=== PATIENT | male | born 1985 | race American Indian/Alaskan Native ===

== ENCOUNTER 2017-05-21 12:18 | Emergency (ER) | payer SELFPAY ==
[2017-05-21 14:43] VITALS: BP 154/92
[2017-05-21 15:27] LABS: Hematocrit 48.6 % (35.5-45.6); Mean Corpuscular HGB Conc 33 % (32-34); Mean Corpuscular Hemoglobin 29 pg (28-32); Mean Corpuscular Volume 87 fl (84-94); Platelet Count 203 K/mm3 (140-440); Red Blood Count 5.57 M/mm3 (3.65-5.03)
[2017-05-21 15:38] LABS: INR 1.68 (0.87-1.13)
[2017-05-21 15:39] LABS: Partial Thromboplastin Time 37.7 Sec. (24.2-36.6)
[2017-05-21 15:48] LABS: Anion Gap 17 mmol/L; BUN/Creatinine Ratio 18.75; Blood Urea Nitrogen 15 mg/dL (9-20); Calcium 9.4 mg/dL (8.4-10.2); Carbon Dioxide 27 mmol/L (22-30); Chloride 99.2 mmol/L (98-107); Glucose 82 mg/dL (75-100); Potassium 4.1 mmol/L (3.6-5.0); Sodium 139 mmol/L (137-145)
[2017-05-21 17:51] LABS: Bacteria,Urine 1+ /HPF (Negative); Bilirubin,Urine NEG (Negative); Blood,Urine NEG (Negative); Ketones,Urine NEG (Negative); Leukocyte Esterase,Urine SM (Negative); Mucus,Urine FEW /HPF; Nitrite,Urine NEG (Negative); Protein,Urine <15 mg/dL mg/dL (Negative); Urobilinogen,Urine < 2.0 mg/dL (<2.0)
[2017-05-21 17:57] LABS: Bilirubin,Urine TNR (Negative); Blood,Urine TNR (Negative); Ketones,Urine TNR mg/dL (Negative); PH,Urine TNR (5.0-7.0); Protein,Urine TNR mg/dL (Negative); Urobilinogen,Urine TNR mg/dL (<2.0)
[2017-05-21 17:58] LABS: Bacteria,Urine TNR /HPF (Negative); Leukocyte Esterase,Urine TNR (Negative); Nitrite,Urine TNR (Negative); RBC,Urine TNR /HPF (0.0-6.0); Renal Epithelial Cells,Urine TNR /LPF; Uric Acid Crystals,Urine TNR; WBC,Urine TNR /HPF (0.0-6.0)
[2017-05-21 17:59] LABS: Fatty Casts,Urine TNR /LPF; Granular Casts,Urine TNR /LPF; Mucus,Urine TNR /HPF; Red Blood Cell Casts,Urine TNR /LPF; Sperm,Urine TNR /HPF (NP); Trichomonas,Urine TNR /HPF; Waxy Casts,Urine TNR /LPF
[2017-05-21] MEDS ORDERED: ZITHROMAX PO ONE (18:03)
[2017-05-21] MEDS ORDERED: ROCEPHIN IM ONE (18:03)
[2017-05-21] MEDS ORDERED: XYLOCAINE 1% MPF 5 mL INFILTRATI ONE (18:03)
--- NOTE | 2017-05-21 19:32 | Emergency Department Report ---
Entered by NURIA LOVELACE, acting as scribe for NATHAN ROY NP. ED Male HPI - General Chief complaint: Urogenital-Male Stated complaint: PAIN BELOW STOMACH Time Seen by Provider: 05/21/17 17:19 Source: patient Mode of arrival: Ambulatory Limitations: No Limitations - History of Present Illness Initial comments: 32 y/o male presents to the ED c/o small swollen node to left inguinal region x 2 days. Associated symptoms include dysuria and nausea but denies vomiting, discharge, back pain, fever and chills. Patient is sexually active with no protection. No alleviating or aggravating factors. NKDA. STARK Complaint: other (small swollen node ) Onset/Timin -: days(s) Location: left inguinal region Radiation: none Severity: mild Quality: other (only hurts if touched ) Consistency: constant, intermittent Improves with: none Worsens with: none swelling, dysuria, other (nausea, denies: fever, chills, back pain, vomiting). denies: discharge - Related Data Sexually active: Yes Previous Rx's Medication Instructions Recorded Last Taken Type NIFEdipine XL [Procardia Xl] 60 mg PO QDAY #30 tablet 12/15/16 Unknown Rx Warfarin [Coumadin] 5 mg PO QDAY #30 tablet 12/15/16 Unknown Rx Allergies Allergy/AdvReac Type Severity Reaction Status Date / Time No Known Allergies Allergy Verified 12/14/16 02:22 ED Review of Systems Comment: All other systems reviewed and negative Constitutional: denies: chills, fever Gastrointestinal: nausea. denies: vomiting Genitourinary: dysuria, other (small swollen node) Musculoskeletal: denies: back pain ED Past Medical Hx - Past Medical History Hx Hypertension: Yes Hx Congestive Heart Failure: No Hx Diabetes: No Hx Asthma: Yes Hx COPD: No Additional medical history: Afib - Surgical History Additional Surgical History: tonsilectomy, lipoma removal - Social History Smoking Status: Never Smoker Substance Use Type: None - Medications Home Medications: Home Medications Medication Instructions Recorded Confirmed Last Taken Type NIFEdipine XL [Procardia Xl] 60 mg PO QDAY #30 tablet 12/15/16 05/21/17 Unknown Rx Warfarin [Coumadin] 5 mg PO QDAY #30 tablet 12/15/16 05/21/17 Unknown Rx ED Physical Exam - General Limitations: No Limitations General appearance: alert, in no apparent distress - Head Head exam: Present: atraumatic, normocephalic, normal inspection - Eye Eye exam: Present: normal appearance, PERRL, EOMI. Absent: scleral icterus, conjunctival injection, nystagmus, periorbital swelling, periorbital tenderness Pupils: Present: normal accommodation - ENT ENT exam: Present: normal exam, normal orophraynx, mucous membranes moist, TM's normal bilaterally, normal external ear exam - Neck Neck exam: Present: normal inspection, full ROM. Absent: tenderness, meningismus, lymphadenopathy, thyromegaly - Respiratory Respiratory exam: Present: normal lung sounds bilaterally. Absent: respiratory distress, wheezes, rales, rhonchi, stridor, chest wall tenderness, accessory muscle use, decreased breath sounds, prolonged expiratory - Cardiovascular Cardiovascular Exam: Present: regular rate, normal rhythm, normal heart sounds. Absent: bradycardia, tachycardia, irregular rhythm, systolic murmur, diastolic murmur, rubs, gallop - GI/Abdominal GI/Abdominal exam: Present: soft, normal bowel sounds. Absent: distended, tenderness, guarding, rebound, rigid, diminished bowel sounds - External exam: Present: other (Lymph inguinal adenopathy and tenderness ) - Extremities Exam Extremities exam: Present: normal inspection, full ROM, normal capillary refill. Absent: tenderness, pedal edema, joint swelling, calf tenderness - Back Exam Back exam: Present: normal inspection, full ROM. Absent: tenderness, CVA tenderness (R), CVA tenderness (L), muscle spasm, paraspinal tenderness, vertebral tenderness, rash noted - Neurological Exam Neurological exam: Present: alert, oriented X3 - Psychiatric Psychiatric exam: Present: normal affect, normal mood - Skin Skin exam: Present: warm, dry, intact, normal color, other. Absent: rash ED Course Vital Signs 05/21/17 14:40 Temperature 98.6 F Pulse Rate 97 H Respiratory 20 Rate Blood Pressure 154/92 - Reevaluation(s) Reevaluation #1: 05/21/17 17:24 PT aware of lab results. Pt states his urine sample was asked for but it was not collected. Specimen cup of urine at bedside. PT aware will repeat UA. Reevaluation #2: 05/21/17 18:04 PT aware of repeated UA results. PT offered empiric treatment for GC/CT. PT agreed. Reevaluation #3: 05/21/17 18:05 PT aware INR 1.68. PT states this is improved for him and his next appointment for INR check is ED Medical Decision Making - Lab Data Result diagrams: 05/21/17 15:15 05/21/17 15:15 Lab Results 05/21/17 05/21/17 05/21/17 Range/Units 15:15 15:15 15:15 WBC 6.0 (4.5-11.0) K/mm3 RBC 5.57 H (3.65-5.03) M/mm3 Hgb 16.0 H (11.8-15.2) gm/dl Hct 48.6 H (35.5-45.6) % MCV 87 (84-94) fl MCH 29 (28-32) pg MCHC 33 (32-34) % RDW 13.0 L (13.2-15.2) % Plt Count 203 (140-440) K/mm3 PT 19.8 H (12.2-14.9) Sec. INR 1.68 H (0.87-1.13) APTT 37.7 H (24.2-36.6) Sec. Sodium 139 (137-145) mmol/L Potassium 4.1 (3.6-5.0) mmol/L Chloride 99.2 (98-107) mmol/L Carbon Dioxide 27 (22-30) mmol/L Anion Gap 17 mmol/L BUN 15 (9-20) mg/dL Creatinine 0.8 (0.8-1.5) mg/dL Estimated GFR > 60 ml/min BUN/Creatinine Ratio 18.75 % Glucose 82 (75-100) mg/dL Calcium 9.4 (8.4-10.2) mg/dL Urine Color Urine Turbidity Urine pH Ur Specific [place] Urine Protein Urine Glucose (UA) Urine Ketones Urine Blood Urine Nitrite Ur Reducing Substances Urine Bilirubin Urine Ictotest Urine Urobilinogen Ur Leukocyte Esterase Urine WBC (Auto) Urine RBC (Auto) U Epithel Cells (Auto) Urine Bacteria (Auto) Urine WBC Clumps Ur Transition Epith Cell Ur Renal Epithelial Cell Calcium Carbonate Cryst Calcium Phosphate Cryst Calcium Oxalate Crystal Cystine Crystals Uric Acid Crystals Triple Phos Crystals Tyrosine Crystals Other Crystals Amorphous Crystals Epithelial Casts Fatty Casts Hyaline Casts Granular Casts Waxy Casts Broad Casts RBC Casts WBC Casts Other Casts Urine Mucus Urine Trichomonas Ur Yeast w Hyphae Urine Yeast (Budding) Urine Sperm 05/21/17 05/21/17 Range/Units Unknown Unknown WBC (4.5-11.0) K/mm3 RBC (3.65-5.03) M/mm3 Hgb (11.8-15.2) gm/dl Hct (35.5-45.6) % MCV (84-94) fl MCH (28-32) pg MCHC (32-34) % RDW (13.2-15.2) % Plt Count (140-440) K/mm3 PT (12.2-14.9) Sec. INR (0.87-1.13) APTT (24.2-36.6) Sec. Sodium (137-145) mmol/L Potassium (3.6-5.0) mmol/L Chloride (98-107) mmol/L Carbon Dioxide (22-30) mmol/L Anion Gap mmol/L BUN (9-20) mg/dL Creatinine (0.8-1.5) mg/dL Estimated GFR ml/min BUN/Creatinine Ratio % Glucose (75-100) mg/dL Calcium (8.4-10.2) mg/dL Urine Color TNR Yellow Urine Turbidity TNR Clear Urine pH TNR 6.0 Ur Specific Blach[place] TNR 1.017 Urine Protein TNR <15 mg/dl Urine Glucose (UA) TNR Neg Urine Ketones TNR Neg Urine Blood TNR Neg Urine Nitrite TNR Neg Ur Reducing Substances TNR Urine Bilirubin TNR Neg Urine Ictotest TNR Urine Urobilinogen TNR < 2.0 Ur Leukocyte Esterase TNR Sm Urine WBC (Auto) TNR 46.0 H Urine RBC (Auto) TNR 5.0 U Epithel Cells (Auto) TNR Urine Bacteria (Auto) TNR 1+ Urine WBC Clumps TNR Ur Transition Epith Cell TNR Ur Renal Epithelial Cell TNR Calcium Carbonate Cryst TNR Calcium Phosphate Cryst TNR Calcium Oxalate Crystal TNR Cystine Crystals TNR Uric Acid Crystals TNR Triple Phos Crystals TNR Tyrosine Crystals TNR Other Crystals TNR Amorphous Crystals TNR Epithelial Casts TNR Fatty Casts TNR Hyaline Casts TNR Granular Casts TNR Waxy Casts TNR Broad Casts TNR RBC Casts TNR WBC Casts TNR Other Casts TNR Urine Mucus TNR Few Urine Trichomonas TNR Ur Yeast w Hyphae TNR Urine Yeast (Budding) TNR Urine Sperm TNR - Differential Diagnosis uti, std, Critical Care Time: No ED Disposition Clinical Impression: Risky sexual behavior, Dysuria, Inguinal adenopathy Disposition: TO HOME OR SELFCARE Is pt being admited?: No Does the pt Need Aspirin: No Condition: Stable Instructions: Sexually Transmitted Diseases (ED), Safe Sex (ED), Dysuria (ED) Additional Instructions: Someone from the hospital should call you if your cultures come back positive You can request a copy of your labs from medical records next week Follow up with PCP in 3-5 days Follow up for bp recheck and full panel std testing No sex for the next 7 days Your partners may need testing/ treatment Your INR was low today- follow up for recheck, continue your Coumadin Referrals: PRIMARY CARE, [Primary Care Provider] - 3-5 Days BUZZ YU MD [Staff Physician] - 3-5 Days [facility] [Outside] - 3-5 Days [facility] [Outside] - 3-5 Days Time of Disposition: 18:09 This documentation as recorded by the [place] ibrahim ELIZABETH,accurately reflects the service I personally performed and the decisions made by me,NATHAN ROY, DIRECTOR SURFACE TRANSPORTATION.
== END 2017-05-21 18:26 | disposition home or self-care (01) ==
LOC: ED 12:18
DX: R59.0 Localized enlarged lymph nodes (principal); R30.0 Dysuria; I10 Essential (primary) hypertension; J45.909 Unspecified asthma, uncomplicated; Z90.89 Acquired absence of other organs
CPT/HCPCS: 36415; 80048; 81001; 85027; 85610; 85730; 87076; 87086; 87186; 87591; 96372; 99283; J0696